=== PATIENT | male | born 1980 | race Caucasian/White ===

== ENCOUNTER 2016-12-09 20:50 | Emergency (ER) | payer OTHER ==
[~2016-12-09] VITALS: Ht 182.9 cm; Wt 74.1 kg
[2016-12-09] MEDS ORDERED: METFORMIN HCL500 M4 PO (23:24)
[2016-12-09 23:53] VITALS: BP 143/88
[2016-12-09 23:54] LABS: POINT-OF-CARE METER ID UU13113702
== END 2016-12-09 23:54 | disposition home or self-care (01) ==
LOC: EME 20:50
PROVIDERS: Emergency Medicine
DX: E11.9 Type 2 diabetes mellitus without complications (principal); Z79.84 Long term (current) use of oral hypoglycemic drugs; Z83.3 Family history of diabetes mellitus
CPT/HCPCS: 80048; 81003; 82010; 82803; 82948; 85027; 99281; 99284; J7030